=== PATIENT | male | born 1965 | race Caucasian/White ===

== ENCOUNTER → 2017-11-03 | Outpatient (REF) | payer MEDICARE, MEDICAID ==
[2016-10-26 10:46] VITALS: BMI 28.5
[~2017-11-03] MED LIST: A & D OINTMENT; ACE325 PO; ACET-1966 PO; ACET-2031 PO; ACET-2043 PO; ACET-2146 PO; ACID1TAB2 PO; AMOX500T10 PO; APIX2.5T PO; ARTO15 OD; BACDS PO; BACI1POW4 TOP; BACL-1 PO; BACL-51 PO; BACOUD TP; BET25 PO; CALC-488 PO; CALC-515 PO; CALC-521 PO; CALC1TAB24 PO; CARB-222 OT; CARB15DR93 OT; CEFU500T50 PO; CELE-1 PO; CEP500 PO; CEPH-13 PO; CEPH500T7 PO; CHOL200074 PO; CHOL500045 PO; CIP500 PO; CIPR-212 PO; CIPR-214 PO; CIPR-344 PO; CIPR-345 PO; CIPR250S2 PO; CLAR-13 PO; CLIN300C99 PO; CLOT15CR63 TP; CLOT15CR64 TOP; CLOT15CR64 TP; CRAN1CAP13 PO; CRAN400T5 PO; CRAN500C12 PO; DEN60I SUBQ; DOC100 PO; DOCU-416 PO; DOCU100T13 PO; DOCU50CA7 PO; ENO100I SC; FINA5TAB64 PO; GOLYTE PO; GUAI-244 PO; HALO50CR TP; HYDR-317 PO; HYDR-4309 PO; HYDR25SU51 RC; HYDR28.415 TP; HYDR28CR65 TOP; HYDR28OI11 TP; HYPR10DR OP; HYPR15DR22 OP; HYPR15DR27 OP; IBUPROFEN PO; LACT1CAP6 PO; LEVO-85 PO; LEVO25TA56 PO; LEVO25TA61 PO; LEVO50TA86 PO; LEVO750T25 PO; LEVO75TA73 PO; LEVO88TA45 PO; LEVOTHYROXINE; LOPE-84 PO; LORA-1456 PO; MAGN400C PO; MEC25 PO; MECL-81 PO; MECL25TA9 PO; MENT118G TOP; MOM PO; NITR-105 PO; NYSP TOP; OLOOD OD; OLOOD OU; OLOP5DRO13 OU; OMEP-153 PO; OMEP40CA48 PO; ONDA4TAB PO; OXYGENHOME INH; PAN40 PO; PHEN200T32 PO; PHEN28OI RC; PHEN95TA10 PO; POLY17PO25 PO; POTA-1 PO; PRED-1 PO; PROB500T31 PO; RIVA20TA PO; SIMV5TAB60 PO; SUC1 PO; SUCR1TAB85 PO; SULF-198 PO; TAM4 PO; TAMS0.4C69 PO; TAMS0.4C70 PO; TERB30CR11 TOP; TRAM-420 PO; TRIA5T TOP; WAR25 PO; WAR5 PO; WAR75 PO; WARF2.5T62 PO; WESTCORT TOP; [UNRECOGNIZED DRUG - CODE] OP; [UNRECOGNIZED DRUG - CODE] PO; [UNRECOGNIZED DRUG - CODE] TP; [UNRECOGNIZED DRUG - CODE] TP; [UNRECOGNIZED DRUG - OTHER] PO; [UNRECOGNIZED DRUG - OTHER] PO; [UNRECOGNIZED DRUG - OTHER] TOP; oxygen
== END ==
LOC: ZZSENDIN 10:04
PROVIDERS: ATTEND Urology
DX: N39.0 Urinary tract infection, site not specified (principal); R31.0 Gross hematuria
CPT/HCPCS: 81001; 87088

== ENCOUNTER → 2017-11-20 | Outpatient (CLI) | payer MEDICARE, MEDICAID ==
[2016-10-26 10:46] VITALS: BMI 28.5
== END ==
LOC: SPU 07:38
PROVIDERS: ATTEND Urology
DX: R31.0 Gross hematuria (principal); N31.8 Other neuromuscular dysfunction of bladder; R33.8 Other retention of urine; Z87.440 Personal history of urinary (tract) infections
CPT/HCPCS: 51701; 81001; 87077; 87088; 87186

== ENCOUNTER → 2017-12-31 | Outpatient (CLI) | payer MEDICARE, MEDICAID ==
[2016-10-26 10:46] VITALS: BMI 28.5
[~2017-12-31] MED LIST changes: +[UNRECOGNIZED DRUG - OTHER] OD
[2017-12-31 10:02] LABS: PLATELET COUNT, AUTOMATED 265 K/uL (150-450)
== END ==
LOC: LAB 09:13
PROVIDERS: ATTEND Emergency Medicine
DX: R31.9 Hematuria, unspecified (principal)
CPT/HCPCS: 36415; 82310; 82374; 82435; 82565; 82947; 84132; 84295; 84520; 85025

== ENCOUNTER → 2018-01-06 | Outpatient (CLI) | payer MEDICARE, MEDICAID ==
[2016-10-26 10:46] VITALS: BMI 28.5
--- NOTE | 2018-01-06 10:40 | RADIOLOGY IMAGING REPORT ---
FACILITY: [facility] - [place] PATIENT NAME: Balwinder Huang : 1965 MR: [id number] V: [id number] EXAM DATE: ORDERING PHYSICIAN: MARIPOSA MARINELLI TECHNOLOGIST: Location: [facility] Patient: Balwinder Huang : 1965 Visit/Account:[id number] Date of Sevice: 01/06/2018 DEXA Scan Clinical history: Osteoporosis. Comparison: DEXA scan from 12/25/2015. LUMBAR SPINE: The bone mineral density (BMD) measured from L1-L4 correlates with a Z-score of -0.5 and a T-score of -0.8 which is Normal as defined by the World Health Organization. The corresponding risk of fractur e in the lumbar spine is 1-2 times increased compared with a young adult reference population. This value has increased by five % since the prior study. More than 5% change is considered significant. HIP: Bone mineral density (BMD) measured in the LEFT total hip region correlates with a Z-score -1.9 and a T-score of -2.4 which is osteopenia as defined by the World Health Organization. The corresponding risk of fracture in the hip is 4-6 times increased compared to a young adult reference population. Th is value has decreased by 5.8 % since the prior study. More than 5% change is considered significant . T score left femoral neck -1.8 Bone mineral density (BMD) measured in the Femoral Neck region measures 0.838 g/cm?. IMPRESSION: 1. Lumbar spine: Normal. There has been 5% increase in the bone mineral density since the previous exam. 2. Left Total Hip: Osteopenia. There has been 5.8% decrease in the bone mineral density since the p revious exam. 3. Femoral Neck: Bone Mineral Density is 0.838 g/cm? The next DEXA scan of this patient should include the following sites: L1-L4 and the left hip. FRAX? WHO Fracture Risk Assessment Tool link: <http://www.shef.ac.uk/FRAX/tool.jsp?locationValue=9> PLEASE NOTE: 1) The World Health Organization defines low BMD as follows: T-score Normal > -1 Osteopenia < -1 and > -2.5 Osteoporosis < -2.5 without fractures Established osteoporosis < -2.5 with fractures 2) In general, you may wish to consider: Diagnosis Treatment Follow-up DEXA Normal BMD Prevention 2-3 years Osteopenia Prevention/therapy 1-2 years Osteoporosis Therapy Yearly 3) Fracture risk estimated from the T-score is more accurate for vertebral fractures (often spontane ous) than for hip fractures. Report Dictated By: Symone Meadows MD at 01/06/2018 10:34 AM Report E-Signed By: Symone Meadows MD at 01/06/2018 10:36 AM WSN:[email or web address]
== END ==
LOC: RAD 01:24
PROVIDERS: ATTEND Emergency Medicine
DX: M85.88 Other specified disorders of bone density and structure, other site (principal)
CPT/HCPCS: 77080

== ENCOUNTER → 2018-01-30 | Outpatient (CLI) | payer MEDICARE, MEDICAID ==
[2016-10-26 10:46] VITALS: BMI 28.5
== END ==
LOC: LAB 12:36
PROVIDERS: ATTEND Emergency Medicine
DX: M81.0 Age-related osteoporosis without current pathological fracture (principal)
CPT/HCPCS: 36415; 82306; 84443

== ENCOUNTER → 2018-02-26 | Outpatient (CLI) | payer MEDICARE, MEDICAID ==
[2016-10-26 10:46] VITALS: BMI 28.5
[2018-02-26 14:54] LABS: PLATELET COUNT, AUTOMATED 264 K/uL (150-450)
== END ==
LOC: LAB 14:37
PROVIDERS: ATTEND Emergency Medicine
DX: R42 Dizziness and giddiness (principal); D75.89 Other specified diseases of blood and blood-forming organs
CPT/HCPCS: 36415; 82040; 82247; 82310; 82374; 82435; 82565; 82607; 82746; 82947; 84075; 84132; 84155; 84295; 84450; 84460; 84520; 85007; 85027; 85379

== ENCOUNTER → 2018-04-07 | Outpatient (CLI) | payer MEDICARE, MEDICAID ==
[2016-10-26 10:46] VITALS: BMI 28.5
[~2018-04-07] MED LIST changes: +CYAN20003 PO; -HYDR-4309 PO; +HYDR-653 PO
[2018-04-07 12:00] LABS: PLATELET COUNT, AUTOMATED 217 K/uL (150-450)
[2018-04-07 12:15] LABS: LDL CHOLESTEROL 110 mg/dl
== END ==
LOC: LAB 11:29
PROVIDERS: ATTEND Emergency Medicine
DX: N40.0 Benign prostatic hyperplasia without lower urinary tract symptoms (principal); E03.9 Hypothyroidism, unspecified; E55.9 Vitamin D deficiency, unspecified; E78.5 Hyperlipidemia, unspecified; M81.0 Age-related osteoporosis without current pathological fracture; D75.89 Other specified diseases of blood and blood-forming organs
CPT/HCPCS: 36415; 82306; 83615; 84443; 85025; G0103; 82040; 82247; 82310; 82374; 82435; 82465; 82565; 82947; 83718; 84075; 84132; 84153; 84155; 84295; 84450; 84460; 84478; 84520

== ENCOUNTER 2018-05-05 11:41 | Outpatient (RCR) | payer MEDICARE, MEDICAID ==
[2016-10-26 10:46] VITALS: BMI 28.5
--- NOTE | 2018-05-06 12:55 | RADIOLOGY IMAGING REPORT ---
FACILITY: [facility] PATIENT NAME: Balwinder Huang : 1965 MR: [id number] V: [id number] EXAM DATE: ORDERING PHYSICIAN: DEEDEE LYNNE TECHNOLOGIST: Location: [facility] Patient: Balwinder Huang : 1965 Visit/Account:[id number] Date of Sevice: 05/06/2018 KIDNEYS EXAMINATION: Renal ultrasound. History: Incomplete bladder emptying, UTIs COMPARISON STUDIES: January 14, 2014 FINDINGS: Kidneys: Right kidney- 8.7 x 4 x 4.34 cm Left kidney- 9.46 x 4.27 x 4.92 cm Uniform and symmetric blood flow in each kidney by Doppler ultrasound. Hydronephrosis: none Resistive index on the right 0.52 and on the left 0.63 Bladder: There is marked thickening of the bladder wall. The bladder urine volume at the time of the examination was 40 mL Abdominal aorta and IVC: Not imaged IMPRESSION: No evidence of hydronephrosis Very thickened bladder wall with bladder urine volume of 40 mL at the time the examination Report Dictated By: Symone Meadows MD at 05/06/2018 11:28 AM Report E-Signed By: Symone Meadows MD at 05/06/2018 12:51 PM WSN:[email or web address]
[2018-05-06] MEDS ORDERED: LEVO50TA86 PO (15:35)
== END 2018-05-06 18:00 | disposition home or self-care (01) ==
LOC: US 11:41 → EDSTATUS 05-06 11:40 → US 05-06 18:00
PROVIDERS: ATTEND Urology
DX: N31.8 Other neuromuscular dysfunction of bladder (principal); N39.0 Urinary tract infection, site not specified; R33.8 Other retention of urine; R31.0 Gross hematuria
CPT/HCPCS: 36415; 76705; 82565

== ENCOUNTER → 2018-06-03 | Outpatient (CLI) | payer MEDICARE, MEDICAID ==
[2016-10-26 10:46] VITALS: BMI 28.5
== END ==
LOC: LAB 12:13
PROVIDERS: ATTEND Emergency Medicine
DX: E53.8 Deficiency of other specified B group vitamins (principal)
CPT/HCPCS: 36415; 82607

== ENCOUNTER → 2018-09-23 | Outpatient (CLI) | payer MEDICARE, MEDICAID ==
[2016-10-26 10:46] VITALS: BMI 28.5
[~2018-09-23] MED LIST changes: +AZIT-17 PO; +BACI1OIN6; +CYA1000 PO; +GEL3000G TP; +HONE15GE TP; +PHEN95TA PO; -SIMV5TAB60 PO; +SIMV5TAB69 PO
--- NOTE | 2018-09-23 16:21 | RADIOLOGY IMAGING REPORT ---
FACILITY: [facility] - [place] PATIENT NAME: Balwinder Huang : 1965 MR: [id number] V: [id number] EXAM DATE: ORDERING PHYSICIAN: MARIPOSA MARINELLI TECHNOLOGIST: Location: [facility] [place] Patient: Balwinder Huang : 1965 Visit/Account:[id number] Date of Sevice: 09/23/2018 CHEST PA LAT COMPARISONS: 2 view chest dated October 25, 2016 ADDITIONAL PERTINENT HISTORY: Cough FINDINGS: Cardiomediastinal silhouette: Negative. Pulmonary vasculature: Negative. Lung bo: Minimal bibasilar scarring. No infiltrate. Pleural spaces: Negative. Osseous structures: Previous anterior interbody fusion of the lower cervical spine. Surrounding soft tissues: Negative. IMPRESSION: No acute cardiopulmonary disease. Report Dictated By: Phil Galicia MD at 09/23/2018 4:13 PM Report E-Signed By: Phil Galicia MD at 09/23/2018 4:17 PM WSN:[email or web address]
[2018-09-23 16:55] LABS: PLATELET COUNT, AUTOMATED 215 K/uL (150-450)
== END ==
LOC: RAD 15:29
PROVIDERS: ATTEND Emergency Medicine
DX: R05 Cough (principal)
CPT/HCPCS: 36415; 71046; 82040; 82247; 82310; 82374; 82435; 82565; 82947; 84075; 84132; 84155; 84295; 84450; 84460; 84520; 85025; 86140

== ENCOUNTER → 2018-11-12 | Outpatient (REF) | payer MEDICARE, MEDICAID ==
[2016-10-26 10:46] VITALS: BMI 28.5
[~2018-11-12] MED LIST changes: -CALC-488 PO; +CALC-743 PO; +[UNRECOGNIZED DRUG - OTHER] TD
== END ==
LOC: ZZSENDIN 12:22
PROVIDERS: ATTEND Emergency Medicine
DX: S81.801A Unspecified open wound, right lower leg, initial encounter (principal); B95.7 Other staphylococcus as the cause of diseases classified elsewhere
CPT/HCPCS: 87070; 87077; 87186

== ENCOUNTER → 2019-01-12 | Outpatient (CLI) | payer MEDICARE, MEDICAID ==
[2016-10-26 10:46] VITALS: BMI 28.5
--- NOTE | 2019-01-13 08:36 | EKG ---
FACILITY: [facility] - [place] PATIENT NAME: FITZ RICHARDS : [id number] MR: [id number] V: [id number] EXAM DATE: ORDERING PHYSICIAN: MARIPOSA MARINELLI TECHNOLOGIST: CANDY CHAUDHRY Test Reason : Blood Pressure : / mmHG Vent. Rate : 042 BPM Atrial Rate : 042 BPM P-R Int : 174 ms QRS Dur : 092 ms QT Int : 494 ms P-R-T Axes : 066 084 067 degrees QTc Int : 412 ms Marked sinus bradycardia with premature atrial complexes Abnormal ECG No previous ECGs available Referred By: EUGENE Confirmed By:
== END ==
LOC: RESP 09:20
PROVIDERS: ATTEND Emergency Medicine
DX: Z01.818 Encounter for other preprocedural examination (principal); R94.31 Abnormal electrocardiogram [ECG] [EKG]